=== PATIENT | male | born 1955 | race Caucasian/White ===

== ENCOUNTER → 2023-07-17 | Outpatient (CLI) | payer MEDICARE, MEDICAID ==
[2023-07-17 11:19] LABS: CREATININE, URINE 20.2 MG/DL; CREATININE,RANDOM URINE 20.2 MG/DL; MAU/CREAT RATIO 19.8 MCG/MG (0.0-30.0)
[2023-07-17 11:36] LABS: HEMOGLOBIN A1c 9.8 % (4.0-6.0)
== END ==
LOC: M LAB 09:50
PROVIDERS: ATTEND Nurse Practitioner Family
DX: E11.65 Type 2 diabetes mellitus with hyperglycemia (principal)